=== PATIENT | female | born 1965 | race American Indian/Alaskan Native ===

== ENCOUNTER 2016-12-03 12:06 | Emergency (ER) | payer MEDICARE ==
[2016-12-03 13:05] LABS: Basophils % (Auto) 0.4 % (0.0-1.8); Eosinophils % (Auto) 2.4 % (0.0-4.3); Hematocrit 41.9 % (30.3-42.9); Hemoglobin 13.7 gm/dl (10.1-14.3); Mean Corpuscular HGB Conc 33 % (30-34); Mean Corpuscular Hemoglobin 30 pg (28-32); Mean Corpuscular Volume 92 fl (79-97); Platelet Count 212 K/mm3 (140-440); Red Blood Count 4.55 M/mm3 (3.65-5.03); Red Cell Distribution Width 14.7 % (13.2-15.2); White Blood Count 4.1 K/mm3 (4.5-11.0)
[2016-12-03 13:15] LABS: INR 1.06 (0.87-1.13)
[2016-12-03 13:22] LABS: Partial Thromboplastin Time 31.2 Sec. (24.2-36.6)
--- NOTE | 2016-12-03 13:58 | Cat Scan Report ---
Cranial CT without contrast. History: Stroke. Findings: Comparison is made to previous study on October 22, 2015. Findings: Multiple large areas of encephalomalacia in the right hemisphere are stable compared to previous examination. Small lacunar infarct in the right oziel is also stable. Chronic periventricular white matter ischemic changes are stable. No new areas of infarct are seen. Ventricular megaly ex vacuo is again noted. Chronic right cerebellar infarct is stable. The calvarium is intact. Impression: No acute findings. Multiple large and small chronic infarcts are stable.
[2016-12-03 15:20] LABS: Anion Gap 21 mmol/L; BUN/Creatinine Ratio 11.81; Blood Urea Nitrogen 13 mg/dL (7-17); Calcium 9.5 mg/dL (8.4-10.2); Carbon Dioxide 22 mmol/L (22-30); Chloride 104.6 mmol/L (98-107); Glucose 103 mg/dL (65-100); Potassium 4.3 mmol/L (3.6-5.0); Sodium 143 mmol/L (137-145)
--- NOTE | 2016-12-03 15:35 | Emergency Department Report ---
ED Neuro Deficit HPI - General Chief Complaint: Neuro Symptoms/Deficit Stated Complaint: CVA Time Seen by Provider: 12/03/16 12:50 Source: patient, EMS Mode of arrival: Wheelchair Limitations: No Limitations - History of Present Illness Initial Comments: 51-year-old female with a past medical history hypertension, diabetes, and multiple CVAs resulting in chronic left-sided weakness and left facial droop presents to the hospital with possible new stroke symptoms. Patient states her manager cardiovascular thought that her face was more droopy than normal however, patient states that her symptoms are stable. Patient states that she was twisting her face because her left ear was uncomfortable and feels like his clogged. This is apparently ongoing. Patient has paralysis and contracture of the left arm and weakness of her left leg. - Related Data Home Medications: Home Medications Medication Instructions Recorded Confirmed Last Taken Ascorbate Calcium [Vitamin C] 500 mg PO QDAY 11/30/14 11/30/14 Unknown Vit No.126/Iron/FA 1 each PO DAILY 11/30/14 11/30/14 Unknown [Classic Tablet] Previous Rx's Medication Instructions Recorded Last Taken Type Baclofen [Lioresal] 5 mg PO BID #60 tablet 12/05/14 Unknown Rx Allopurinol [Zyloprim] 300 mg PO QDAY #30 tablet 10/11/15 Unknown Rx AtorvaSTATin [Lipitor] 40 mg PO QHS #30 tablet 10/11/15 Unknown Rx Baclofen [Lioresal] 5 mg PO TID #90 tablet 10/11/15 Unknown Rx Clopidogrel [Plavix] 75 mg PO QDAY #30 tablet 10/11/15 Unknown Rx Famotidine [Pepcid] 20 mg PO BID #60 tablet 10/11/15 Unknown Rx Lisinopril [Zestril TAB] 40 mg PO QDAY #30 tablet 10/11/15 Unknown Rx Metoprolol [Lopressor TAB] 25 mg PO DAILY #30 tablet 10/11/15 Unknown Rx NIFEdipine XL [Procardia Xl] 60 mg PO QDAY #30 tablet 10/11/15 Unknown Rx metFORMIN [Glucophage] 500 mg PO QDAY #30 tablet 10/11/15 Unknown Rx traMADol [Ultram 50 MG tab] 50 mg PO Q6HR PRN #30 tablet 10/11/15 Unknown Rx traZODone [Desyrel] 50 mg PO QHS #30 tablet 10/11/15 Unknown Rx Carbamide Peroxide [Ear Wax 5 - 10 drop AU BID 4 Days 12/03/16 Unknown Rx Removal] Allergies/Adverse Reactions: Allergies Allergy/AdvReac Type Severity Reaction Status Date / Time No Known Allergies Allergy Verified 10/11/15 11:48 ED Review of Systems ROS: Stated complaint: CVA Other details as noted in HPI Comment: All other systems reviewed and negative Other: Constitutional: No fevers chills Eyes: No eye pain visual changes ENT: as per hpi Neck: Denies pain Respiratory: Denies cough wheezing shortness of breath Cardiovascular: Denies chest pain, palpitations, syncope GI: Denies abdominal pain, nausea, vomiting, diarrhea : Denies dysuria Musculoskeletal: Denies back pain Skin: Denies rash, lesions, erythema Neurologic: Denies headache, numbness, weakness Psychiatric: Denies suicidal ideation, hallucinations ED Past Medical Hx - Past Medical History Hx Hypertension: Yes Hx CVA: Yes (2008 and 2009,left side weakness/[employer]) Hx Diabetes: Yes - Surgical History Additional Surgical History: tonsillectomy,appendectomy - Social History Smoking Status: Unknown if ever smoked Substance Use Type: None - Medications Home Medications: Home Medications Medication Instructions Recorded Confirmed Last Taken Type Ascorbate Calcium [Vitamin C] 500 mg PO QDAY 11/30/14 11/30/14 Unknown History Vit No.126/Iron/FA 1 each PO DAILY 11/30/14 11/30/14 Unknown History [Classic Tablet] Baclofen [Lioresal] 5 mg PO BID #60 tablet 12/05/14 Unknown Rx Allopurinol [Zyloprim] 300 mg PO QDAY #30 tablet 10/11/15 Unknown Rx AtorvaSTATin [Lipitor] 40 mg PO QHS #30 tablet 10/11/15 Unknown Rx Baclofen [Lioresal] 5 mg PO TID #90 tablet 10/11/15 Unknown Rx Clopidogrel [Plavix] 75 mg PO QDAY #30 tablet 10/11/15 Unknown Rx Famotidine [Pepcid] 20 mg PO BID #60 tablet 10/11/15 Unknown Rx Lisinopril [Zestril TAB] 40 mg PO QDAY #30 tablet 10/11/15 Unknown Rx Metoprolol [Lopressor TAB] 25 mg PO DAILY #30 tablet 10/11/15 Unknown Rx NIFEdipine XL [Procardia Xl] 60 mg PO QDAY #30 tablet 10/11/15 Unknown Rx metFORMIN [Glucophage] 500 mg PO QDAY #30 tablet 10/11/15 Unknown Rx traMADol [Ultram 50 MG tab] 50 mg PO Q6HR PRN #30 tablet 10/11/15 Unknown Rx traZODone [Desyrel] 50 mg PO QHS #30 tablet 10/11/15 Unknown Rx Carbamide Peroxide [Ear Wax 5 - 10 drop AU BID 4 Days 12/03/16 Unknown Rx Removal] ED Neuro Physical Exam - General Limitations: No Limitations Suspected Stroke: Yes - NIHSS Assessment Interval: Baseline 1a. Level of Consciousness: alert 1b. LOC Questions: answers correctly 1c. LOC Commands: performs tasks correctly 2. Best Gaze: normal 3. Visual: partial hemianopia 4. Facial Palsy: partial paralysis 5b. Motor Arm Right: no drift 5a. Motor Arm Left: some gravity effort (at shoulder but contracted at elbow, wrist, and hand) 6a. Motor Leg Left: drift 6b. Motor Leg Right: no drift 7. Limb Ataxia: absent 8. Sensory: mild/moderate sensory loss 9. Best Language: mild/moderate aphasia 10. Dysarthria: normal 11. Extinction/Inattention: no abnormality Total Score: 8 Stroke Severity: Moderate Stroke - Other Other exam information: General: No limitations, patient is alert in no acute distress Head exam: Atraumatic, normocephalic Eyes exam: Normal appearance, pupils equal reactive to light, EOMI. Left field visual deficit ENT: Moist mucous membrane, bilateral cerumen impaction Neck exam: Normal inspection, full range of motion, no meningismus nontender Respiratory exam: Clear to auscultation bilateral, no wheezes, rales, crackles Cardiovascular: Normal rate and rhythm, normal heart sounds Abdomen: Soft, nondistended, and nontender, with normal bowel sounds, no rebound, or guarding Extremity: Full range of motion normal inspection no deformity Back: Normal Inspection, full range of motion, no tenderness Neurologic: Alert, oriented x3, see NIH stroke scale however, these are chronic symptoms and not acute Psychiatric: normal affect, normal mood Skin: Warm, dry, intact ED Course Vital Signs 12/03/16 12:33 Temperature 97.9 F Pulse Rate 68 Respiratory 20 Rate Blood Pressure 156/98 O2 Sat by Pulse 100 Oximetry - Reevaluation(s) Reevaluation #1: 12/03/16 15:37 Patient remains stable and asymptomatic - Lab Data Result diagrams: 12/03/16 12:45 12/03/16 12:45 Lab Results 12/03/16 12/03/16 12/03/16 Range/Units 12:41 12:45 12:45 WBC 4.1 L (4.5-11.0) K/mm3 RBC 4.55 (3.65-5.03) M/mm3 Hgb 13.7 (10.1-14.3) gm/dl Hct 41.9 (30.3-42.9) % MCV 92 (79-97) fl MCH 30 (28-32) pg MCHC 33 (30-34) % RDW 14.7 (13.2-15.2) % Plt Count 212 (140-440) K/mm3 Lymph % (Auto) 42.5 H (13.4-35.0) % Harper % (Auto) 9.6 H (0.0-7.3) % Eos % (Auto) 2.4 (0.0-4.3) % Baso % (Auto) 0.4 (0.0-1.8) % Lymph # 1.7 (1.2-5.4) K/mm3 Harper # 0.4 (0.0-0.8) K/mm3 Eos # 0.1 (0.0-0.4) K/mm3 Baso # 0.0 (0.0-0.1) K/mm3 Seg Neutrophils % 45.1 (40.0-70.0) % Seg Neutrophils # 1.8 (1.8-7.7) K/mm3 PT 14.3 (12.2-14.9) Sec. INR 1.06 (0.87-1.13) APTT 31.2 (24.2-36.6) Sec. Thrombin Time (15.1-19.6) Sec. Sodium (137-145) mmol/L Potassium (3.6-5.0) mmol/L Chloride (98-107) mmol/L Carbon Dioxide (22-30) mmol/L Anion Gap mmol/L BUN (7-17) mg/dL Creatinine (0.7-1.2) mg/dL Estimated GFR ml/min BUN/Creatinine Ratio % Glucose (65-100) mg/dL POC Glucose 120 H (70-105) Calcium (8.4-10.2) mg/dL Troponin T (0.00-0.029) ng/mL 12/03/16 12/03/16 Range/Units 12:45 12:45 WBC (4.5-11.0) K/mm3 RBC (3.65-5.03) M/mm3 Hgb (10.1-14.3) gm/dl Hct (30.3-42.9) % MCV (79-97) fl MCH (28-32) pg MCHC (30-34) % RDW (13.2-15.2) % Plt Count (140-440) K/mm3 Lymph % (Auto) (13.4-35.0) % Harper % (Auto) (0.0-7.3) % Eos % (Auto) (0.0-4.3) % Baso % (Auto) (0.0-1.8) % Lymph # (1.2-5.4) K/mm3 Harper # (0.0-0.8) K/mm3 Eos # (0.0-0.4) K/mm3 Baso # (0.0-0.1) K/mm3 Seg Neutrophils % (40.0-70.0) % Seg Neutrophils # (1.8-7.7) K/mm3 PT (12.2-14.9) Sec. INR (0.87-1.13) APTT (24.2-36.6) Sec. Thrombin Time 16.3 (15.1-19.6) Sec. Sodium 143 (137-145) mmol/L Potassium 4.3 (3.6-5.0) mmol/L Chloride 104.6 (98-107) mmol/L Carbon Dioxide 22 (22-30) mmol/L Anion Gap 21 mmol/L BUN 13 (7-17) mg/dL Creatinine 1.1 (0.7-1.2) mg/dL Estimated GFR > 60 ml/min BUN/Creatinine Ratio 11.81 % Glucose 103 H (65-100) mg/dL POC Glucose (70-105) Calcium 9.5 (8.4-10.2) mg/dL Troponin T < 0.010 (0.00-0.029) ng/mL - EKG Data -: EKG Interpreted by Me (sinus george 59, no stemi) - Radiology Data Radiology results: report reviewed (CT head noncontrast: No acute findings. Multiple large and small chronic infarcts are stable) - Medical Decision Making Patient will be discharged. Symptoms stable and chronic. Nothing acute on CT or labs. Patient does have bilateral cerumen impaction. Cerumenex will be recommended as outpatient - Differential Diagnosis chronic stroke, acute stroke, encephalopathy, cerumen impaction Critical Care Time: No Critical care attestation.: If time is entered above; I have spent that time in minutes in the direct care of this critically ill patient, excluding procedure time. ED Disposition Clinical Impression: Left spastic hemiparesis, Chronic cerebrovascular accident (CVA), Impacted cerumen, bilateral, Diabetes mellitus, HTN (hypertension) Disposition: TO HOME OR SELFCARE Is pt being admited?: No Does the pt Need Aspirin: No Condition: Stable Instructions: Cerumen Impaction (ED), Self Care Measures After a Stroke (ED) Additional Instructions: Use medication as prescribed. Follow-up with your primary care doctor or ENT doctor for further help with removal of earwax. Return if symptoms worsen. Prescriptions: Carbamide Peroxide [Ear Wax Removal] 5 - 10 drop AU BID 4 Days Referrals: NURIA FUNEZ MD [Primary Care Provider] - 3-5 Days ALEXANDRA CONDE MD [Staff Physician] - 3-5 Days (ENT doctor) Time of Disposition: 15:50
[2016-12-03 18:32] VITALS: BP 104/75
== END 2016-12-03 20:15 | disposition home or self-care (01) ==
LOC: ED 12:06
DX: G81.14 Spastic hemiplegia affecting left nondominant side (principal); I63.9 Cerebral infarction, unspecified; H61.23 Impacted cerumen, bilateral; E11.9 Type 2 diabetes mellitus without complications; I10 Essential (primary) hypertension
CPT/HCPCS: 36415; 70450; 80048; 82962; 84484; 85025; 85610; 85670; 85730; 93005; 93010; 99284